=== PATIENT | female | born 1985 | race Caucasian/White ===

== ENCOUNTER 2016-08-03 16:26 | Emergency (ER) | payer BC ==
--- NOTE | 2016-08-05 13:11 | ER ---
ADMIT: 08/03/2016 RM/LOC: ER [facility] MR#: [id number] [address] [facility] [address] [place], [place] [address] [address] [facility] [address] [place] [address] Emergency Room Report SEX: F AGE: 30 : 1985 DATE: 08/03/2016 A 30-year-old female comes to the Emergency Department with a headache. She apparently fell last night, but stated the headache has been there prior to her fall. She has had problems with chronic headaches, similar to this one for the past 2 years. They have been coming more frequently. Apparently, her care provider who has been managing her headaches as they have occurred. She has had no definitive workup for these chronic headaches. See T-sheet for history and physical. The patient is diagnosed with headache. Of note, she was given Imitrex in the Emergency Department, 25-30 minutes later, her headache had resolved. I did encourage her to follow up with Neurology this coming week for formal workup for her chronic headache. Tushar Kinsey MD/ basim JOB #: [id number] CC: Tushar Kinsey MD, Attending Physician Leslie Denney, Family Physician
== END 2016-08-03 18:10 | disposition home or self-care (01) ==
LOC: ER 16:26
DX: R51 Headache (principal)

== ENCOUNTER 2016-09-03 19:46 | Emergency (ER) | payer BC ==
--- NOTE | 2016-09-13 07:22 | ER ---
ADMIT: 09/03/2016 RM/LOC: ER [facility] MR#: [id number] [address] [facility] [address] [place], [place] [address] [facility] [place] [address] Emergency Room Report SEX: F AGE: 30 : 1985 DATE: 09/03/2016 HISTORY OF PRESENT ILLNESS: Patient is a 30-year-old female, who presents to the emergency room with very flat affect, complaining of abdominal pain, flank pain, but starts in the epigastrium and radiates down to the right flank. She said she had some nausea in the past. She has had procedures done to include cholecystectomy. She has diabetes type 2. She has had anxiety and depression, has attempted suicide in the past. Migraine headaches, and she had a tubal ligation. MEDICATIONS: Include: 1. Diabetic agents in the form of metformin, glipizide. 2. Duloxetine. 3. Sumatriptan. ALLERGIES: NO ALLERGIES TO MEDICATION. PHYSICAL EXAMINATION: VITAL SIGNS: Within normal limits. GENERAL: She has a very flat affect. ABDOMEN: She does have some mild tenderness on deep palpation of right upper quadrant. No radiation to the back or lower abdomen. LABS: Looking pretty normal. White count of 11.3 with a glucose of 197. Clinical impression with a clean urine, test negative of course and Helicobacter pylori was negative as well. The patient did not have a left shift on her white count. She was discharged with Carafate. She was given Carafate in the ER and it was helpful, so she was sent home with Carafate for further use at home. The patient was driving home, I could not give her anything that would make her drowsy or somnolent. CLINICAL IMPRESSION: Gastritis. PLAN: Follow up with primary provider. Continue her home medications. Her primary provider is Leslie Denney. The patient verbalized understanding. KARLOS Guerrero / Mark Peters MD / basim JOB #: [id number] CC: Mark Peters MD, Attending Physician Leslie Denney, Family Physician
== END 2016-09-03 21:36 | disposition home or self-care (01) ==
LOC: ER 19:46
DX: K29.70 Gastritis, unspecified, without bleeding (principal); E11.9 Type 2 diabetes mellitus without complications; Z79.899 Other long term (current) drug therapy

== ENCOUNTER 2016-09-05 21:41 | Emergency (ER) | payer BC ==
--- NOTE | 2016-09-13 07:22 | ER ---
ADMIT: 09/05/2016 RM/LOC: ER [facility] MR#: [id number] [address] [address] [facility] [place] [place] [address] Emergency Room Report SEX: F AGE: 30 : 1985 DATE: 09/05/2016 ADDENDUM: This patient comes into the ER because she is having abdominal pain. It is a burning-type pain in her epigastric area. She was seen in the ER recently and diagnosed as having gastritis. They put her on Carafate, which she still continues to have this burning-type pain. She has had her gallbladder removed. On physical exam, her pain is in the epigastric area. I did give her a GI cocktail, which she states helped her pain minimally. She was given [place] 2 tabs p.o. Her CBC and CMP were normal. I wrote a prescription for omeprazole and [place], and she is to follow up with Dr. Coles, the surgeon. Please see my T-sheet. KARLOS Bentley / Mark Peters MD / basim JOB #: [id number] CC: Mark Peters MD, Attending Physician Leslie Denney PA-C, Family Physician
== END 2016-09-05 23:56 | disposition home or self-care (01) ==
LOC: ER 21:41
DX: R10.13 Epigastric pain (principal); E11.9 Type 2 diabetes mellitus without complications; G43.909 Migraine, unspecified, not intractable, without status migrainosus; Z98.890 Other specified postprocedural states; Z79.899 Other long term (current) drug therapy

== ENCOUNTER 2016-09-20 22:05 | Emergency (ER) | payer BC ==
--- NOTE | 2016-09-21 05:31 | ER ---
ADMIT: 09/20/2016 RM/LOC: ER [facility] MR#: [id number] [address] [facility] [address] [address] [place] [address] Emergency Room Report SEX: F AGE: 30 : 1985 DATE: 09/20/2016 The patient is a 30-year-old female with history of migraines. No relief with Imitrex. Complains of persistent vomiting, photophobia. Received IV fluids, Zofran, Toradol, magnesium, DHE with near-relief of migraine. Follow up Leslie Denney as needed. Haseeb Cruz MD/ basim JOB #: [id number] CC: Haseeb Cruz MD, Attending Physician Leslie Denney PA-C, Family Physician Leslie Denney PA-C
--- NOTE | 2016-09-22 14:33 | NUR ---
Pt triggered as a high ED user. SWS called and spoke with pt. Pt states she has an appt with her PCP this week. Pt states she has transportation to her medical appt and able to fill her prescription medications. Pt denies any needs or concerns at this time.
== END 2016-09-21 00:10 | disposition home or self-care (01) ==
LOC: ER 22:05
DX: G43.909 Migraine, unspecified, not intractable, without status migrainosus (principal); E11.9 Type 2 diabetes mellitus without complications; K21.9 Gastro-esophageal reflux disease without esophagitis; Z90.49 Acquired absence of other specified parts of digestive tract; Z79.84 Long term (current) use of oral hypoglycemic drugs; Z79.899 Other long term (current) drug therapy

== ENCOUNTER 2016-11-01 21:19 | Emergency (ER) | payer BC ==
--- NOTE | 2016-11-02 18:58 | ER ---
ADMIT: 11/01/2016 RM/LOC: ER [facility] MR#: [id number] [address] [facility] [address] [place], [place] [address] [place] [address] Emergency Room Report SEX: F AGE: 30 : 1985 DATE: 11/01/2016 The patient is a 30-year-old female, complaining of right flank pain associated with nausea, vomiting, diarrhea. The patient is status post cholecystectomy. Exam remarkable for nontoxic, afebrile female, in no acute distress. WBC 10.9, CRP 1.36, lactic 4.1. HCG negative. Urinalysis unremarkable except for positive glucose. Lipase normal. The patient given IV fluids, Zofran, Toradol, Dilaudid, Protonix with improvement. Since her lactic acid is elevated at 4.1, and on metformin, just fluid push, and Imodium as needed. Follow up with Leslie Denney APRN, as needed. Haseeb Cruz MD/ basim JOB #: [id number] CC: Haseeb Cruz MD, Attending Physician Leslie Denney PA-C, Family Physician Leslie Denney PA-C
== END 2016-11-02 00:10 | disposition home or self-care (01) ==
LOC: ER 21:19
DX: K52.9 Noninfective gastroenteritis and colitis, unspecified (principal); R10.11 Right upper quadrant pain; E11.9 Type 2 diabetes mellitus without complications; Z79.84 Long term (current) use of oral hypoglycemic drugs; Z79.899 Other long term (current) drug therapy; E87.2 Acidosis